=== PATIENT | female | born 1935 | race Caucasian/White ===

== ENCOUNTER 2019-06-11 11:02 | Emergency (ER) | payer MEDICARE ==
[2019-06-11 12:48] LABS: ABS Basophils 0.1 10^3/ul (0-0.2); ABS Eosinophils 0.2 10^3/ul (0-0.6); ABS Lymphocytes 1.3 10^3/ul (1.0-4.8); ABS Monocytes 0.7 10^3/ul (0-0.8); Eosinophil % 3.5 %; Hematocrit 32 % (35-47); Hemoglobin 10.8 g/dL (12.0-16.0); Lymphocyte % 22.1 %; Mean Corpuscular HGB Conc 34 g/dL (31-36); Mean Corpuscular Hemoglobin 30 pg (27-31); Mean Corpuscular Volume 88 fL (80-97); Platelet Count 221 10^3/uL (150-450); Red Blood Count 3.66 10^6 /uL (3.70-4.87); Red Cell Distribution Width 15 % (10-15); White Blood Count 5.8 10^3/uL (3.5-10.8)
[2019-06-11 12:58] LABS: INR 1.16 (0.82-1.09)
[2019-06-11 13:00] LABS: ALT 7 U/L (7-52); AST 16 U/L (13-39); Albumin 3.8 g/dL (3.2-5.2); Albumin/Globulin Ratio 1.7 (1-3); Alkaline Phosphatase 39 U/L (34-104); Anion Gap 6 mmol/L (2-11); BUN/Creatinine Ratio 16.5 (8-20); Blood Urea Nitrogen 21 mg/dL (6-24); C Reactive Protein < 1.00 mg/L (<8.01); CO2 Carbon Dioxide 27 mmol/L (22-32); Calcium 8.4 mg/dL (8.6-10.3); Chloride 106 mmol/L (101-111); EGFR African American 48.4 (>60); Globulin 2.3 g/dL (2-4); Glucose 106 mg/dL (70-100); Potassium 4.1 mmol/L (3.5-5.0); Sodium 139 mmol/L (135-145); Total Protein 6.1 g/dL (6.4-8.9)
[2019-06-11 13:39] LABS: Alcohol, S < 10 mg/dL (<10)
[2019-06-11 13:43] LABS: TSH (Thyroid Stimulating Horm) 2.05 mcIU/mL (0.34-5.60)
[2019-06-11 14:05] VITALS: BP 161/79
== END 2019-06-11 14:05 | disposition home or self-care (01) ==
LOC: ED 11:02

== ENCOUNTER 2021-12-29 18:16 | Inpatient (IN) ==
[2021-12-29 18:48] LABS: ABS Lymphocytes 0.6 10^3/ul (1.0-4.8); ABS Monocytes 0.7 10^3/ul (0-0.8); Eosinophil % 0.1 %; Hematocrit 34 % (35-47); Hemoglobin 11.2 g/dL (12.0-16.0); Lymphocyte % 10.8 %; Mean Corpuscular HGB Conc 33 g/dL (31-36); Mean Corpuscular Hemoglobin 31 pg (27-31); Mean Corpuscular Volume 94 fL (80-97); Platelet Count 156 10^3/uL (150-450); Red Blood Count 3.65 10^6 /uL (3.70-4.87); Red Cell Distribution Width 14 % (10-15); White Blood Count 5.3 10^3/uL (3.5-10.8)
[2021-12-29 19:02] LABS: Activated Partial Thrombo Time 32.7 seconds (26.0-38.0); INR 1.43 (0.89-1.11)
[2021-12-29 19:30] LABS: Albumin 3.9 g/dL (3.2-5.2); Albumin/Globulin Ratio 1.9 (1-3); Calcium 8.3 mg/dL (8.6-10.3); Globulin 2.1 g/dL (2-4); Magnesium 1.8 mg/dL (1.9-2.7); Total Bilirubin 0.9 mg/dL (0.2-1.0); eGFR CKD-EPI 55.9 (>60)
[2021-12-29] MEDS ORDERED: Magnesium Sulfate 2 gm BAG 2 GM/50 ML BAG IVPB ONE (19:42)
[2021-12-29] MEDS ORDERED: Furosemide 20 mg/2 ml IV VIAL IV SLOW PU ONE (20:35)
[2021-12-29 20:48] LABS: High Sensitivity Troponin 1 Hr 15 pg/mL (<15)
[2021-12-29] MEDS ORDERED: dilTIAZem 30 MG TAB PO ONE (21:43)
[2021-12-29] MEDS ORDERED: Levalbuterol 0.63MG/3ML NEB UNIT OF USE INH PRN (23:15)
[2021-12-30] MEDS ORDERED: methylPREDNISolone SOD SUCC 125 mg 2 ML VIAL IV ONE (00:06)
[2021-12-30 00:10] LABS: C Reactive Protein 68.45 mg/L (<8.01)
[2021-12-30] MEDS ORDERED: cefTRIAXone 1 gm/50 mL D5W 1 GM/50 ML BAG IV SCH (00:15)
[2021-12-30] MEDS ORDERED: Azithromycin 500 mg/250 ml NS 500 MG/250 ML BAG IVPB SCH (01:00)
[2021-12-30] MEDS ORDERED: Lactated Ringers 1000 ml BAG 1,000 ML IV SCH (01:00)
[2021-12-30 05:37] LABS: ABS Lymphocytes 0.5 10^3/ul (1.0-4.8); ABS Monocytes 0.2 10^3/ul (0-0.8); ABS Neutrophils 4.7 10^3/ul (1.5-7.7); Hematocrit 34 % (35-47); Hemoglobin 11.6 g/dL (12.0-16.0); Lymphocyte % 8.5 %; Mean Corpuscular HGB Conc 34 g/dL (31-36); Mean Corpuscular Hemoglobin 32 pg (27-31); Mean Corpuscular Volume 93 fL (80-97); Platelet Count 174 10^3/uL (150-450); Red Blood Count 3.66 10^6 /uL (3.70-4.87); Red Cell Distribution Width 14 % (10-15); White Blood Count 5.4 10^3/uL (3.5-10.8)
[2021-12-30 05:43] LABS: INR 1.3 (0.89-1.11)
[2021-12-30 06:32] LABS: Calcium 8.4 mg/dL (8.6-10.3); Magnesium 2.2 mg/dL (1.9-2.7); Potassium 3.5 mmol/L (3.5-5.0)
[2021-12-30] MEDS ORDERED: Potassium Chlor 20 meq TAB.ER PO ONE (06:52)
[2021-12-31 12:57] VITALS: BP 131/80
== END 2021-12-31 13:05 | disposition home or self-care (01) | DRG 193 ==
LOC: ED 18:16 → EDHOLD 18:16 → OBSVTOIN 22:12 → SUATTDRO 22:12 → EDHOLD 12-30 03:01 → MEDTELE 12-30 03:49
PROVIDERS: ADMIT Student in an Organized Health Care Education/Training Program; ATTEND Internal Medicine

== ENCOUNTER 2022-10-22 11:23 | Observation (INO) ==
[2022-10-22 12:02] LABS: ABS Eosinophils 0.1 10^3/uL (0.0-0.5); ABS Lymphocytes 0.9 10^3/uL (1.0-4.8); ABS Monocytes 0.7 10^3/uL (0.0-0.9); ABS Neutrophils 6.2 10^3/uL (1.5-7.6); ABS Nucleated RBC 0.01 10^3/ul; Eosinophil % 1.1 %; Hematocrit 35.1 % (35-45); Hemoglobin 11.6 g/dL (11.5-14.3); Lymphocyte % 11.7 %; Mean Corpuscular Hemoglobin 25.6 pg (27-33); Mean Corpuscular Volume 77.8 fL (80-97); Mean Platelet Volume 7.7 fL (7.5-11.2); Nucleated Red Blood Cells % 0.1 /100 WBC (0.0-0.4); Platelet Count 272 10^3/uL (150-450); Red Blood Count 4.52 10^6/uL (3.63-4.92); Red Cell Distribution Width 21.8 % (12-17)
[2022-10-22 12:23] LABS: Albumin 4.4 g/dL (3.2-5.2); Anion Gap 11 mmol/L (2-16); CO2 Carbon Dioxide 26 mmol/L (22-32); Calcium 10.5 mg/dL (8.6-10.3); Chloride 102 mmol/L (101-111); Potassium 3.8 mmol/L (3.5-5.0); Sodium 139 mmol/L (135-145)
[2022-10-22 12:29] LABS: ALT 12 U/L (7-52); AST 23 U/L (13-39); Albumin/Globulin Ratio 1.5 (1-3); Alkaline Phosphatase 45 U/L (35-149); Blood Urea Nitrogen 24 mg/dL (6-24); Creatinine, Serum 1.26 mg/dL (0.51-0.95); Glucose 113 mg/dL (70-100); Total Protein 7.4 g/dL (6.4-8.9); eGFR CKD-EPI 41.1 (>60)
[2022-10-22 12:33] LABS: INR 1.25 (0.83-1.13)
[2022-10-22 12:38] LABS: Urine Appearance Cloudy; Urine Bilirubin Negative (Negative); Urine Blood 1+ (Negative); Urine Color Amber; Urine Glucose Negative (Negative); Urine Ketones Negative (Negative); Urine Nitrite Negative (Negative); Urine Protein 2+(100 mg/dL) (Negative); Urine Urobilinogen Negative (Negative)
[2022-10-22 12:46] LABS: Urine Amorphous Crystals Present (Absent); Urine Bacteria 1+ (Absent); Urine Red Blood Cell 3+(>10/hpf) (Absent); Urine Renal Epithelial Cells Present (Absent); Urine Squamous Epithelial Cell Present (Absent); Urine Transitional Epithelial Present (Absent); Urine White Blood Cell 1+(6-10/hpf) (Absent)
[2022-10-22 13:01] LABS: Urine Benzodiazepine Screen Presumptive Positive (None Detect); Urine Cannabinoids Screen None Detected (None Detect); Urine Opiates Screen None Detected (None Detect)
[2022-10-22 13:03] LABS: Acetaminophen < 15 mcg/mL; Alcohol, S < 13 mg/dL (<13); Salicylate < 2.50 mg/dL (<30)
[2022-10-23 07:02] LABS: ABS Lymphocytes 1.2 10^3/uL (1.0-4.8); ABS Monocytes 0.7 10^3/uL (0.0-0.9); ABS Neutrophils 5.2 10^3/uL (1.5-7.6); Eosinophil % 0.4 %; Hematocrit 31.4 % (35-45); Hemoglobin 10.4 g/dL (11.5-14.3); Lymphocyte % 16.9 %; Mean Corpuscular Hemoglobin 25.7 pg (27-33); Mean Corpuscular Hgb Conc 33.2 g/dL (31-36); Mean Corpuscular Volume 77.3 fL (80-97); Mean Platelet Volume 7.7 fL (7.5-11.2); Platelet Count 256 10^3/uL (150-450); Red Blood Count 4.06 10^6/uL (3.63-4.92); Red Cell Distribution Width 21.8 % (12-17); White Blood Count 7.2 10^3/uL (3.8-11.8)
[2022-10-23 07:16] LABS: Albumin 3.8 g/dL (3.2-5.2); Albumin/Globulin Ratio 1.3 (1-3); Calcium 8.5 mg/dL (8.6-10.3); Creatinine, Serum 1.26 mg/dL (0.51-0.95); Magnesium 1.6 mg/dL (1.9-2.7); Potassium 3.5 mmol/L (3.5-5.0); Total Bilirubin 0.6 mg/dL (0.2-1.0); Total Protein 6.8 g/dL (6.4-8.9); eGFR CKD-EPI 41.1 (>60)
[2022-10-23] MEDS ORDERED: Magnesium Sulfate IV 3 GM in NS 0.9% 100 ml BAG 100 ML IVPB ONE (07:57)
[2022-10-24 09:47] VITALS: BP 100/56
== END 2022-10-24 14:10 | disposition home or self-care (01) ==
LOC: EDHOLD 11:23 → ED 11:23 → SUATTDRO 15:10 → MED 23:11
PROVIDERS: ADMIT Internal Medicine; ATTEND Internal Medicine

== ENCOUNTER 2022-12-28 16:33 | Inpatient (IN) ==
[2022-12-28 17:28] LABS: Albumin 4.1 g/dL (3.2-5.2); Albumin/Globulin Ratio 1.5 (1-3); Calcium 8.6 mg/dL (8.6-10.3); Creatinine, Serum 1.22 mg/dL (0.51-0.95); Globulin 2.8 g/dL (2-4); Potassium 3.9 mmol/L (3.5-5.0); Total Bilirubin 0.4 mg/dL (0.2-1.0); Total Protein 6.9 g/dL (6.4-8.9); eGFR CKD-EPI 42.7 (>60)
[2022-12-28 17:31] LABS: ABS Eosinophils 0.1 10^3/uL (0.0-0.5); ABS Lymphocytes 0.8 10^3/uL (1.0-4.8); ABS Monocytes 1.3 10^3/uL (0.0-0.9); ABS Neutrophils 7.7 10^3/uL (1.5-7.6); ABS Nucleated RBC 0.01 10^3/ul; Eosinophil % 0.5 %; Hematocrit 30.5 % (35-45); Hemoglobin 10.2 g/dL (11.5-14.3); Lymphocyte % 7.9 %; Mean Corpuscular Hemoglobin 27.7 pg (27-33); Mean Corpuscular Hgb Conc 33.6 g/dL (31-36); Mean Corpuscular Volume 82.4 fL (80-97); Mean Platelet Volume 7.8 fL (7.5-11.2); Nucleated Red Blood Cells % 0.1 %/100WBC (0.0-0.8); Platelet Count 264 10^3/uL (150-450); Red Cell Distribution Width 20.3 % (12-17); White Blood Count 9.9 10^3/uL (3.8-11.8)
[2022-12-28] MEDS ORDERED: Iodixanol (CONTRAST) 320 MG/ML 100 ML SDV IV ONE (18:38)
[2022-12-28 19:02] LABS: High Sensitivity Troponin 1 Hr 11 pg/mL (<15)
[2022-12-28] MEDS ORDERED: Morphine 2 MG/ML SYRINGE IV ONE (19:15)
[2022-12-28] MEDS ORDERED: Ondansetron 4 mg VIAL 2 MG/ML 2 ml VIAL IV ONE (19:15)
[2022-12-28] MEDS ORDERED: Carvedilol 12.5 MG TAB (NF) PO ONE (20:08)
[2022-12-28] MEDS ORDERED: Al Hydrox/Mg Hydrox/Simet LIQ 30 ML UDC PO ONE (21:15)
[2022-12-29] MEDS ORDERED: Morphine 2 MG/ML SYRINGE IV ONE (00:28)
[2022-12-29] MEDS ORDERED: Al Hydrox/Mg Hydrox/Simet LIQ 30 ML UDC PO PRN (05:52)
[2022-12-29] MEDS ORDERED: Polyethylene Glycol 3350 17 GM PACKET PO PRN (06:01)
[2022-12-29] MEDS ORDERED: Al Hydrox/Mg Hydrox/Simet LIQ 30 ML UDC PO ONE (07:25)
[2022-12-29 09:01] LABS: ABS Basophils 0.1 10^3/uL (0.0-0.1); ABS Lymphocytes 0.8 10^3/uL (1.0-4.8); ABS Monocytes 1.5 10^3/uL (0.0-0.9); ABS Neutrophils 7.9 10^3/uL (1.5-7.6); Corrected Retic Count 0.7 % (0.5-1.5); Eosinophil % 0.3 %; Hematocrit 29.1 % (35-45); Hematocrit for Retic CNT 29.1 % (35-45); Hemoglobin 9.8 g/dL (11.5-14.3); Immature Retic Fraction 0.33; Lymphocyte % 7.7 %; Mean Corpuscular Hemoglobin 27.7 pg (27-33); Mean Corpuscular Hgb Conc 33.8 g/dL (31-36); Mean Corpuscular Volume 82.1 fL (80-97); Mean Platelet Volume 7.5 fL (7.5-11.2); Platelet Count 225 10^3/uL (150-450); RBC Retic Count 3.55 10^6/ul (3.63-4.92); Red Blood Count 3.55 10^6/uL (3.63-4.92); Red Cell Distribution Width 19.5 % (12-17); White Blood Count 10.3 10^3/uL (3.8-11.8)
[2022-12-29 09:26] LABS: Calcium 8.3 mg/dL (8.6-10.3); Creatinine, Serum 0.93 mg/dL (0.51-0.95); Potassium 3.9 mmol/L (3.5-5.0); eGFR CKD-EPI 59.1 (>60)
[2022-12-29 10:58] LABS: Ferritin 18.5 ng/mL (11-307)
[2022-12-29 11:05] LABS: Folate 15.56 ng/mL (5.90-24.80)
[2022-12-30 07:04] LABS: ABS Eosinophils 0.1 10^3/uL (0.0-0.5); ABS Lymphocytes 0.6 10^3/uL (1.0-4.8); ABS Monocytes 1.3 10^3/uL (0.0-0.9); ABS Neutrophils 7.9 10^3/uL (1.5-7.6); Eosinophil % 0.5 %; Hematocrit 30.8 % (35-45); Hemoglobin 10.2 g/dL (11.5-14.3); Lymphocyte % 5.8 %; Mean Corpuscular Hemoglobin 27.6 pg (27-33); Mean Corpuscular Hgb Conc 33.2 g/dL (31-36); Mean Corpuscular Volume 83.2 fL (80-97); Mean Platelet Volume 7.9 fL (7.5-11.2); Platelet Count 222 10^3/uL (150-450); Red Blood Count 3.71 10^6/uL (3.63-4.92); Red Cell Distribution Width 19.9 % (12-17); White Blood Count 9.9 10^3/uL (3.8-11.8)
[2022-12-30 07:10] LABS: Calcium 8.5 mg/dL (8.6-10.3); Creatinine, Serum 0.93 mg/dL (0.51-0.95); Phosphorus 3.3 mg/dL (2.5-5.0); eGFR CKD-EPI 59.1 (>60)
[2022-12-30] MEDS: Morphine 2 MG/ML SYRINGE IV PRN ×2 (15:56→21:30)
[2022-12-30 16:33] LABS: ABS Lymphocytes 0.7 10^3/uL (1.0-4.8); ABS Monocytes 1.3 10^3/uL (0.0-0.9); ABS Neutrophils 8.6 10^3/uL (1.5-7.6); Eosinophil % 0.2 %; Hematocrit 28.4 % (35-45); Hemoglobin 9.4 g/dL (11.5-14.3); Lymphocyte % 6.3 %; Mean Corpuscular Hemoglobin 27.2 pg (27-33); Mean Corpuscular Volume 82.6 fL (80-97); Mean Platelet Volume 7.9 fL (7.5-11.2); Platelet Count 230 10^3/uL (150-450); Red Blood Count 3.43 10^6/uL (3.63-4.92); Red Cell Distribution Width 19.1 % (12-17); White Blood Count 10.6 10^3/uL (3.8-11.8)
[2022-12-31 06:31] LABS: ABS Lymphocytes 0.6 10^3/uL (1.0-4.8); ABS Monocytes 1.1 10^3/uL (0.0-0.9); ABS Neutrophils 7.9 10^3/uL (1.5-7.6); Eosinophil % 0.2 %; Hematocrit 28.5 % (35-45); Hemoglobin 9.5 g/dL (11.5-14.3); Lymphocyte % 6.1 %; Mean Corpuscular Hemoglobin 27.7 pg (27-33); Mean Corpuscular Hgb Conc 33.2 g/dL (31-36); Mean Corpuscular Volume 83.3 fL (80-97); Mean Platelet Volume 7.3 fL (7.5-11.2); Platelet Count 242 10^3/uL (150-450); Red Blood Count 3.42 10^6/uL (3.63-4.92); Red Cell Distribution Width 19.2 % (12-17); White Blood Count 9.7 10^3/uL (3.8-11.8)
[2022-12-31 06:53] LABS: Calcium 8.5 mg/dL (8.6-10.3); Creatinine, Serum 0.89 mg/dL (0.51-0.95); Phosphorus 3.5 mg/dL (2.5-5.0); Potassium 4.4 mmol/L (3.5-5.0); eGFR CKD-EPI 62.3 (>60)
[2022-12-31 07:35] LABS: TSH Ultra Thyroid Stim Horm 3.93 mcIU/mL (0.34-5.60)
[2022-12-31 07:37] LABS: Free T4 1.17 ng/dL (0.61-1.12)
[2022-12-31] MEDS: Iron Sucrose 200 MG in NS 0.9% 100 ml BAG 100 ML IVPB SCH (09:47)
[2023-01-01] MEDS: Iron Sucrose 200 MG in NS 0.9% 100 ml BAG 100 ML IVPB SCH (09:51)
[2023-01-01 10:48] LABS: ABS Lymphocytes 0.5 10^3/uL (1.0-4.8); ABS Monocytes 1.1 10^3/uL (0.0-0.9); ABS Neutrophils 6.8 10^3/uL (1.5-7.6); ABS Nucleated RBC 0.01 10^3/ul; Eosinophil % 0.3 %; Hematocrit 29.4 % (35-45); Hemoglobin 9.9 g/dL (11.5-14.3); Lymphocyte % 6.3 %; Mean Corpuscular Hemoglobin 27.6 pg (27-33); Mean Corpuscular Hgb Conc 33.6 g/dL (31-36); Mean Platelet Volume 7.9 fL (7.5-11.2); Nucleated Red Blood Cells % 0.1 %/100WBC (0.0-0.8); Platelet Count 305 10^3/uL (150-450); Red Blood Count 3.58 10^6/uL (3.63-4.92); Red Cell Distribution Width 19.1 % (12-17); White Blood Count 8.6 10^3/uL (3.8-11.8)
[2023-01-01 11:29] LABS: Calcium 8.9 mg/dL (8.6-10.3); Creatinine, Serum 0.99 mg/dL (0.51-0.95); Magnesium 2.1 mg/dL (1.9-2.7); Potassium 3.9 mmol/L (3.5-5.0); eGFR CKD-EPI 54.8 (>60)
[2023-01-01] MEDS: Polyethylene Glycol 3350 17 GM PACKET PO SCH (21:39)
[2023-01-02] MEDS: Metoprolol Tartrate 5 mg VIAL 5 ml VIAL (1 mg/ml) IV PRN ×2 (01:02→05:54)
[2023-01-02] MEDS ORDERED: Metoprolol Tartrate 5 mg VIAL 5 ml VIAL (1 mg/ml) IV ONE (04:22)
[2023-01-02] MEDS: Polyethylene Glycol 3350 17 GM PACKET PO SCH ×2 (09:02→21:18)
[2023-01-02] MEDS: Iron Sucrose 200 MG in NS 0.9% 100 ml BAG 100 ML IVPB SCH (11:28)
[2023-01-03 06:15] LABS: ABS Lymphocytes 0.8 10^3/uL (1.0-4.8); ABS Monocytes 1.2 10^3/uL (0.0-0.9); ABS Neutrophils 6.7 10^3/uL (1.5-7.6); ABS Nucleated RBC 0.01 10^3/ul; Eosinophil % 0.4 %; Hematocrit 28.5 % (35-45); Hemoglobin 9.5 g/dL (11.5-14.3); Lymphocyte % 9.3 %; Mean Corpuscular Hemoglobin 27.8 pg (27-33); Mean Corpuscular Hgb Conc 33.4 g/dL (31-36); Mean Corpuscular Volume 83.2 fL (80-97); Mean Platelet Volume 7.6 fL (7.5-11.2); Nucleated Red Blood Cells % 0.1 %/100WBC (0.0-0.8); Platelet Count 320 10^3/uL (150-450); Red Blood Count 3.43 10^6/uL (3.63-4.92); Red Cell Distribution Width 18.6 % (12-17); White Blood Count 8.8 10^3/uL (3.8-11.8)
[2023-01-03 06:37] LABS: Calcium 8.8 mg/dL (8.6-10.3); Creatinine, Serum 0.64 mg/dL (0.51-0.95); Magnesium 1.7 mg/dL (1.9-2.7); Potassium 3.5 mmol/L (3.5-5.0); eGFR CKD-EPI 84.9 (>60)
[2023-01-03] MEDS: Polyethylene Glycol 3350 17 GM PACKET PO SCH (11:26)
[2023-01-03] MEDS: Iron Sucrose 200 MG in NS 0.9% 100 ml BAG 100 ML IVPB SCH (11:28)
[2023-01-03 15:12] VITALS: BP 117/65
== END 2023-01-03 17:35 | DRG 310 ==
LOC: ED 16:33 → EDHOLD 16:33 → SUATTDRO 23:54 → MEDTELE 12-29 14:28 → SUATTDRO 12-30 09:40
PROVIDERS: ADMIT Internal Medicine; ATTEND Family Medicine

== ENCOUNTER 2023-01-06 16:58 | Inpatient (IN) ==
[2023-01-06] MEDS ORDERED: Morphine 4 MG/ML VIAL (1 ml) IV ONE ×2 (17:15→22:46)
[2023-01-06 17:34] LABS: ABS Basophils 0.1 10^3/uL (0.0-0.1); ABS Eosinophils 0.1 10^3/uL (0.0-0.5); ABS Neutrophils 5.3 10^3/uL (1.5-7.6); ABS Nucleated RBC 0.01 10^3/ul; Eosinophil % 1.7 %; Hematocrit 29.5 % (35-45); Hemoglobin 9.9 g/dL (11.5-14.3); Lymphocyte % 13.6 %; Mean Corpuscular Hemoglobin 28.1 pg (27-33); Mean Corpuscular Hgb Conc 33.6 g/dL (31-36); Mean Corpuscular Volume 83.6 fL (80-97); Mean Platelet Volume 7.3 fL (7.5-11.2); Nucleated Red Blood Cells % 0.1 %/100WBC (0.0-0.8); Platelet Count 352 10^3/uL (150-450); Red Blood Count 3.53 10^6/uL (3.63-4.92); Red Cell Distribution Width 18.4 % (12-17); White Blood Count 7.5 10^3/uL (3.8-11.8)
[2023-01-06 18:19] LABS: Albumin 3.3 g/dL (3.2-5.2); Albumin/Globulin Ratio 1.2 (1-3); Calcium 8.6 mg/dL (8.6-10.3); Creatinine, Serum 0.74 mg/dL (0.51-0.95); Globulin 2.8 g/dL (2-4); Potassium 3.5 mmol/L (3.5-5.0); Total Bilirubin 0.6 mg/dL (0.2-1.0); Total Protein 6.1 g/dL (6.4-8.9); eGFR CKD-EPI 77.8 (>60)
[2023-01-07] MEDS ORDERED: Morphine ORAL CONCENTRATE 5 MG/0.25 ML ORAL.SYRIN PO PRN (10:34)
[2023-01-07] MEDS ORDERED: Ondansetron ODT 4 mg TAB 4 MG TAB SL PRN (12:54)
[2023-01-08] MEDS: Morphine ORAL CONCENTRATE 5 MG/0.25 ML ORAL.SYRIN PO PRN ×4 (00:28→20:34)
[2023-01-09] MEDS: Morphine ORAL CONCENTRATE 5 MG/0.25 ML ORAL.SYRIN PO PRN ×5 (00:56→22:21)
[2023-01-09] MEDS: Polyethylene Glycol 3350 17 GM PACKET PO SCH (11:38)
[2023-01-09] MEDS: Senna TAB 8.6 mg TAB PO SCH (22:21)
[2023-01-10] MEDS: Morphine ORAL CONCENTRATE 5 MG/0.25 ML ORAL.SYRIN PO PRN ×3 (00:56→21:50)
[2023-01-10] MEDS: Polyethylene Glycol 3350 17 GM PACKET PO SCH (12:15)
[2023-01-10] MEDS: Senna TAB 8.6 mg TAB PO SCH (21:00)
[2023-01-11] MEDS: Morphine ORAL CONCENTRATE 5 MG/0.25 ML ORAL.SYRIN PO PRN ×4 (09:03→21:50)
[2023-01-11] MEDS: Polyethylene Glycol 3350 17 GM PACKET PO SCH (09:10)
[2023-01-11] MEDS: Senna TAB 8.6 mg TAB PO SCH (21:49)
[2023-01-12] MEDS ORDERED: Morphine 10 MG/ML VIAL (1 ml) IM ONE (05:26)
[2023-01-12] MEDS: Morphine ORAL CONCENTRATE 5 MG/0.25 ML ORAL.SYRIN PO PRN ×2 (07:55→09:48)
[2023-01-12] MEDS: Polyethylene Glycol 3350 17 GM PACKET PO SCH (09:10)
[2023-01-12] MEDS ORDERED: Morphine ORAL CONCENTRATE 5 MG/0.25 ML ORAL.SYRIN PO SCH (14:00)
[2023-01-12] MEDS: Morphine ORAL CONCENTRATE 5 MG/0.25 ML ORAL.SYRIN PO SCH ×6 (14:59→23:33)
[2023-01-12] MEDS: Senna TAB 8.6 mg TAB PO SCH (21:27)
[2023-01-13] MEDS: Morphine ORAL CONCENTRATE 5 MG/0.25 ML ORAL.SYRIN PO SCH ×8 (02:21→23:45)
[2023-01-13] MEDS: Polyethylene Glycol 3350 17 GM PACKET PO SCH ×2 (09:12→12:16)
[2023-01-13] MEDS ORDERED: Morphine 2 MG/ML SYRINGE IV PRN (14:43)
[2023-01-13] MEDS: Senna TAB 8.6 mg TAB PO SCH (21:09)
[2023-01-14] MEDS: Morphine ORAL CONCENTRATE 5 MG/0.25 ML ORAL.SYRIN PO SCH ×8 (02:23→23:58)
[2023-01-14] MEDS: Polyethylene Glycol 3350 17 GM PACKET PO SCH ×2 (10:25→20:53)
[2023-01-14] MEDS: Senna TAB 8.6 mg TAB PO SCH (20:48)
[2023-01-15] MEDS: Morphine ORAL CONCENTRATE 5 MG/0.25 ML ORAL.SYRIN PO SCH ×15 (03:18→22:44)
[2023-01-15] MEDS ORDERED: Morphine ORAL CONCENTRATE 5 MG/0.25 ML ORAL.SYRIN PO SCH (05:00)
[2023-01-15] MEDS ORDERED: Morphine 10 MG/ML VIAL (1 ml) IM ONE (06:22)
[2023-01-15] MEDS: Polyethylene Glycol 3350 17 GM PACKET PO SCH ×2 (10:29→20:01)
[2023-01-15 17:54] VITALS: BP 115/77
[2023-01-15] MEDS: Senna TAB 8.6 mg TAB PO SCH (20:01)
[2023-01-15] MEDS: Morphine 2 MG/ML SYRINGE IV PRN (21:16)
[2023-01-16] MEDS: Morphine ORAL CONCENTRATE 5 MG/0.25 ML ORAL.SYRIN PO SCH ×13 (01:22→23:15)
[2023-01-16] MEDS: Polyethylene Glycol 3350 17 GM PACKET PO SCH ×2 (09:21→19:42)
[2023-01-16] MEDS: Morphine 2 MG/ML SYRINGE IV PRN ×4 (09:34→18:04)
[2023-01-16] MEDS: Senna TAB 8.6 mg TAB PO SCH (20:50)
[2023-01-17] MEDS: Morphine ORAL CONCENTRATE 5 MG/0.25 ML ORAL.SYRIN PO SCH ×13 (00:39→22:58)
[2023-01-17] MEDS: Morphine 2 MG/ML SYRINGE IV PRN ×3 (00:39→11:19)
[2023-01-17] MEDS: Polyethylene Glycol 3350 17 GM PACKET PO SCH ×2 (11:14→22:18)
[2023-01-17] MEDS ORDERED: Mineral Oil ENEMA 118 ML/BOTTLE BOTTLE PR ONE (19:04)
[2023-01-17] MEDS: Senna TAB 8.6 mg TAB PO SCH (22:18)
[2023-01-18] MEDS: Morphine ORAL CONCENTRATE 5 MG/0.25 ML ORAL.SYRIN PO SCH ×6 (01:16→10:55)
[2023-01-18] MEDS: Polyethylene Glycol 3350 17 GM PACKET PO SCH (07:51)
[2023-01-18] MEDS ORDERED: Morphine ORAL CONCENTRATE 5 MG/0.25 ML ORAL.SYRIN SL PRN (08:54)
== END 2023-01-18 10:44 | DRG 951 ==
LOC: EDHOLD 16:58 → ED 16:58 → SUATTDRO 01-07 12:52 → SSU 01-07 20:54 → SUATTDRO 01-09 11:00 → MED 01-09 14:25
PROVIDERS: ADMIT Student in an Organized Health Care Education/Training Program; ATTEND Hospitalist